=== PATIENT | female | born 1960 | race Caucasian/White ===

== ENCOUNTER → 2019-04-02 | Outpatient (CLI) | payer OTHER | LOC: M.RAD 12:32 | DX: N60.01 Solitary cyst of right breast (principal); N63.22 Unspecified lump in the left breast, upper inner quadrant; R92.2 Inconclusive mammogram ==

== ENCOUNTER → 2021-07-12 | Outpatient (CLI) | payer OTHER | LOC: M.RAD 16:43 | PROVIDERS: ATTEND Nurse Practitioner Family | DX: M25.572 Pain in left ankle and joints of left foot (principal); M79.662 Pain in left lower leg ==